=== PATIENT | female | born 1950 | race Caucasian/White ===

== ENCOUNTER 2016-12-11 18:21 | Emergency (ER) | payer OTHER ==
--- NOTE | ~2016-12-11 | CT101 ---
[facility] A Service of [facility] & [facility] RADIOLOGY TEXT RESULTS PATIENT: JOON RATLIFF LOCATION: [facility] : 50 UNIT #: [id number] AGE: [address]: Kt Pedraza MD SEX: F ORDER DR: [id number] [facility] [address] [place], [place] [address] [id number] E MR#: [id number] [facility] #: [id number] NAME: JOON RATLIFF : 1950 SEX: F STUDY DATE/TIME: 12/11/2016 17:19 UNIT: [facility] ROOM: STUDY DESCRIPTION: CT Maxillofacial Area Wo Cont Attending Physician: Kt Pedraza M.D. Ordering Physician: Abeba Mcneill M.D. Primary Care Physician: Rashida Burrell M.D. MEDICAL IMAGING REPORT This report is preliminary unless electronic signature is present EXAM CT facial bones HISTORY Fall, head injury today, swelling of the head, pain on left side x today. Orbit pain. TECHNIQUE CT facial bones performed. Bone and soft tissue windows reviewed. Sagittal and coronal reconstructions performed. This CT exam was performed with one or more of the following radiation dose reduction techniques: automatic exposure control, adjustment of mA and/or kV according to patient size, and iterative reconstruction. FINDINGS Please see today's dedicated CT of the head for full discussion of intracranial findings. The visualized brain on this examination shows no acute abnormality. The intraorbital soft tissues show no acute abnormality. There is a central and predominantly left paracentral forehead subcutaneous hematoma measuring approximately 8.1 cm in diameter x 1.7 cm in thickness x 4.2 cm in craniocaudal extent. It does extend into the left supraorbital soft tissues with soft tissue swelling extending into the left upper eyelid and possibly slightly into the lower eyelid as well. Abnormal soft tissue swelling extends into the nasal bridge region. No soft tissue defect, subcutaneous air or radiodense foreign bodies seen. The remainder of superficial facial soft tissues is unremarkable. The visualized nasopharyngeal, oropharyngeal, pharyngeal mucosal, retropharyngeal spaces, submandibular glands, parotid glands are unremarkable. There is streak artifact from incompletely visualized anterior fixation hardware involving at least the C4 and C5 levels. No upper cervical adenopathy. Mucous retention cyst right maxillary sinus. [facility]. [facility] A Service of [facility] RADIOLOGY TEXT RESULTS PATIENT: JOON RATLIFF LOCATION: [facility] : 50 UNIT #: [id number] AGE: [address]: Kt Pedraza MD SEX: F ORDER DR: No evidence of acute sinusitis. Visualized bones of calvaria intact. The nasal bones are intact as is the nasal septum. Ostiomeatal complexes are patent. The bony structures of orbits are intact. Zygomas, zygomatic arches, pterygoid plates, maxillary sinus griffin intact. The mandible is intact. There are degenerative changes in the temporomandibular joints bilaterally. Patient is edentulous. IMPRESSION 1. No fracture. 2. Large central and left paracentral forehead hematoma extending into the left periorbital soft tissues, more pronounced in the supraorbital soft tissues, and measuring approximately 8.1 cm in diameter x 1.7 cm in thickness x 4.2 cm in craniocaudal extent. No associated soft tissue defect, subcutaneous air or radiodense foreign body. Soft tissue swelling does extend to a lesser extent into the left lower eyelid and into the nasal bridge region. 3. No facial bone fracture is seen. 4. Degenerative changes in the temporomandibular joints. 5. Patient is edentulous. 6. Evidence of prior anterior cervical spine fixation involving at least the C4-C5 levels. Visualized hardware grossly intact. 7. Not mentioned above, note made of some scattered carotid arterial calcifications. 8. Mucus attention cyst right maxillary sinus. Dictated by... Kaiser Reyna M.D. THIS IS AN ELECTRONICALLY VERIFIED REPORT Kaiser Reyna M.D. at 12/12/2016 2:38 PM KSENIA/shae TD: 12/11/2016 22:40 JOB #: [id number] MEDICAL IMAGING REPORT Page 1 of 1 COPY
--- NOTE | ~2016-12-11 | CT71 ---
[facility] A Service [facility] RADIOLOGY TEXT RESULTS PATIENT: JOON RATLIFF LOCATION: [facility] : 50 UNIT #: [id number] AGE: [address]: Kt Pedraza MD SEX: F ORDER DR: [id number] [place] [id number] [facility] [place], [place] [address] [id number] E MR#: [id number] Acc #: [id number] NAME: JOON RATLIFF : 1950 SEX: F STUDY DATE/TIME: 12/11/2016 17:19 UNIT: [facility] ROOM: STUDY DESCRIPTION: CT Head Wo Contrast Attending Physician: Kt Pedraza M.D. Ordering Physician: Abeba Mcneill M.D. Primary Care Physician: Rashida Burrell M.D. MEDICAL IMAGING REPORT This report is preliminary unless electronic signature is present EXAM CT head without contrast INDICATIONS Fall today and injury. Left-sided headache and swelling. TECHNIQUE CT of the head was performed without contrast. This CT exam was performed with one or more of the following radiation dose reduction techniques: automatic exposure control, adjustment of mA and/or kV according to patient size, and iterative reconstruction. COMPARISON STUDIES None. FINDINGS There is a large left frontal scalp hematoma extending into the left periorbital region. No intracranial hemorrhage. There is no acute cortical-based infarction, focal mass lesion, or hydrocephalus. The included paranasal sinuses are unremarkable. There is no acute osseous abnormality. IMPRESSION There is a large left frontal scalp hematoma extending into the left periorbital region. There is no evidence of acute intracranial abnormality. Dictated by... Rosas Delgado M.D. [facility] A Service [facility] RADIOLOGY TEXT RESULTS PATIENT: JOON RATLIFF LOCATION: [facility] : 50 UNIT #: [id number] AGE: [address]: Kt Pedraza MD SEX: F ORDER DR: THIS IS AN ELECTRONICALLY VERIFIED REPORT Rosas Delgado M.D. at 12/12/2016 10:03 AM MICHAEL/shae TD: 12/11/2016 22:20 JOB #: [id number] MEDICAL IMAGING REPORT Page 1 of 1 COPY
--- NOTE | ~2016-12-11 | CR141 ---
[facility] A Service of [facility] & [facility] RADIOLOGY TEXT RESULTS PATIENT: JOON RATLIFF LOCATION: [facility] : 50 UNIT #: [id number] AGE: [address]: Kt Pedraza MD SEX: F ORDER DR: [id number] [facility] [address] [place], [place] [address] [id number] E MR#: [id number] Acc #: [id number] NAME: JOON RATLIFF : 1950 SEX: F STUDY DATE/TIME: 12/11/2016 18:08 UNIT: [facility] ROOM: STUDY DESCRIPTION: CR Hand Min 3 Views Lt Attending Physician: Kt Pedraza M.D. Ordering Physician: Twan Godoy D.O. Primary Care Physician: Rashida Burrell M.D. MEDICAL IMAGING REPORT This report is preliminary unless electronic signature is present EXAM Left hand 12/11/2016 INDICATIONS 65-year-old female who fell. Pain in the left hand, symptoms began today. TECHNIQUE 3 views left hand. No comparisons. FINDINGS The bones are osteoporotic. No acute fracture. Soft tissues within normal limits. There is mild degenerative change of the first carpometacarpal joint. There are mild degenerative changes of the DIP joints. No focal soft tissue swelling. IMPRESSION 1. Osteoporosis and degenerative change but no acute fracture. Dictated by... Erich Payne M.D. THIS IS AN ELECTRONICALLY VERIFIED REPORT Erich Payne M.D. at 12/12/2016 5:10 PM KADIE/sherrie TD: 12/11/2016 23:13 JOB #: [id number] MEDICAL IMAGING REPORT Page 1 of 1 COPY
--- NOTE | ~2016-12-11 | CR132 ---
[facility] A Service of [facility] RADIOLOGY TEXT RESULTS PATIENT: JOON RATLIFF LOCATION: [facility] : 50 UNIT #: [id number] AGE: [address]: Kt Pedraza MD SEX: F ORDER DR: [id number] [facility] [address] [place], [place] [address] [id number] E MR#: [id number] Acc #: [id number] NAME: JOON RATLIFF : 1950 SEX: F STUDY DATE/TIME: 12/11/2016 18:08 UNIT: [facility] ROOM: STUDY DESCRIPTION: CR Forearm 2 View Lt Attending Physician: Kt Pedraza M.D. Ordering Physician: Twan Godoy D.O. Primary Care Physician: Rashida Burrell M.D. MEDICAL IMAGING REPORT This report is preliminary unless electronic signature is present EXAM Left forearm series, 12/11/2016 HISTORY Trauma. Fall 12/11/2016. FINDINGS AP and lateral radiographs of the left forearm are presented. Diminished bony mineralization. No traumatic fracture or malalignment. The wrist and elbow joints appear normally located and aligned. No soft tissue defect, subcutaneous air or radiodense foreign body. Note made of mild to moderate degenerative changes at the basal joint of the thumb. Dictated by... Kaiser Reyna M.D. THIS IS AN ELECTRONICALLY VERIFIED REPORT Kaiser Reyna M.D. at 12/12/2016 2:37 PM KSENIA/laura TD: 12/11/2016 23:07 JOB #: [id number] MEDICAL IMAGING REPORT Page 1 of 1 COPY
--- NOTE | ~2016-12-11 | CR58 ---
[facility] A Service of [facility] RADIOLOGY TEXT RESULTS PATIENT: JOON RATLIFF LOCATION: [facility] : 50 UNIT #: [id number] AGE: [address]: Kt Pedraza MD SEX: F ORDER DR: [id number] [facility] [address] [place], [place] [address] [id number] E MR#: [id number] Acc #: [id number] NAME: JOON RATLIFF : 1950 SEX: F STUDY DATE/TIME: 12/11/2016 18:07 UNIT: [facility] ROOM: STUDY DESCRIPTION: CR Cervical Spine 2 or 3 Views Attending Physician: Kt Pedraza M.D. Ordering Physician: Twan Godoy D.O. Primary Care Physician: Rashida Burrell M.D. MEDICAL IMAGING REPORT This report is preliminary unless electronic signature is present EXAM Cervical series 12/11/2016 INDICATIONS Fell today, neck pain. TECHNIQUE Lateral, frontal, open-mouth odontoid, dedicated odontoid views of the cervical spine were performed. Correlation is made with MRI of the cervical spine 06/01/2010. FINDINGS The bones are osteoporotic. The dens and lateral masses are intact. Alignment is preserved. Cervicothoracic junction intact. The patient is status post anterior screw and plate fixation from C4-C6. Prosthetic disc devices are present at the operative levels. No acute fracture or malalignment. There is multilevel facet arthropathy throughout the cervical spine. Anterior soft tissues within normal limits. There is uncovertebral spurring in the buj-od-wikfw cervical levels. IMPRESSION 1. Osteoporosis without evidence of acute fracture or malalignment. 2. Anterior fusion of C4-C6. 3. Degenerative changes primarily related to facet arthropathy and uncovertebral spurring. Dictated by... Erich Payne M.D. THIS IS AN ELECTRONICALLY VERIFIED REPORT Erich Payne M.D. at 12/12/2016 5:10 PM JLY/[facility] A Service of [facility] RADIOLOGY TEXT RESULTS PATIENT: JOON RATLIFF LOCATION: [facility] : 50 UNIT #: [id number] AGE: [address]: Kt Pedraza MD SEX: F ORDER DR: TD: 12/11/2016 23:14 JOB #: [id number] MEDICAL IMAGING REPORT Page 1 of 1 COPY
--- NOTE | ~2016-12-11 | CR170 ---
[facility] A Service of [facility] RADIOLOGY TEXT RESULTS PATIENT: JOON RATLIFF LOCATION: [facility] : 50 UNIT #: [id number] AGE: [address]: Kt Pedraza MD SEX: F ORDER DR: [id number] [facility] [address] [place], [place] [address] [id number] E MR#: [id number] Acc #: [id number] NAME: JOON RATLIFF : 1950 SEX: F STUDY DATE/TIME: 12/11/2016 19:01 UNIT: [facility] ROOM: STUDY DESCRIPTION: CR Knee 2 Views Rt Attending Physician: Kt Pedraza M.D. Ordering Physician: Gary Galan M.D. Primary Care Physician: Rashida Burrell M.D. MEDICAL IMAGING REPORT This report is preliminary unless electronic signature is present EXAM Right knee series 12/11/2016 INDICATIONS 65-year-old female with pain and swelling, bruising. Tripped over a curb and hit the face today. TECHNIQUE Additional views of the right knee prior study at 1809 hours, same date. FINDINGS The additional views demonstrate no evidence of distinct fracture. Specifically, the medial aspect of the tibial plateau appears intact. There is only some minimal spurring but no acute fracture. IMPRESSION 1. The additional views demonstrate no distinct evidence of fracture involving the medial tibial plateau. Dictated by... Erich Payne M.D. THIS IS AN ELECTRONICALLY VERIFIED REPORT Erich Payne M.D. at 12/12/2016 5:11 PM KADIE/sherrie TD: 12/11/2016 23:36 JOB #: [id number] MEDICAL IMAGING REPORT Page 1 of 1 COPY
--- NOTE | ~2016-12-11 | CR173 ---
[facility] A Service of [facility] & [facility] RADIOLOGY TEXT RESULTS PATIENT: JOON RATLIFF LOCATION: [facility] : 50 UNIT #: [id number] AGE: [address]: Kt Pedraza MD SEX: F ORDER DR: [id number] [facility] [address] [place], [place] [address] [id number] E MR#: [id number] Acc #: [id number] NAME: JOON RATLIFF : 1950 SEX: F STUDY DATE/TIME: 12/11/2016 18:09 UNIT: [facility] ROOM: STUDY DESCRIPTION: CR Knee 3 Views Rt Attending Physician: Kt Pedraza M.D. Ordering Physician: Twan Godoy D.O. Primary Care Physician: Rashida Burrell M.D. MEDICAL IMAGING REPORT This report is preliminary unless electronic signature is present EXAM Right knee series, 12/11/2016 HISTORY Fall 12/11/2016. Pain. Trauma. FINDINGS AP, lateral and sunrise views of the right knee are presented. Generally diminished bony mineralization. There is an area of poorly defined cortex and relative lucency along the medial aspect of the medial tibial plateau without distinct fracture seen. I favor that this is a projectional artifact. Correlate with mechanism of injury and location of patient's pain. This might be further evaluated with repeat AP and/or oblique views of the knee. As noted, no definite fracture is seen. There is moderate narrowing of all three joint space compartments. No joint effusion. No acute appearing soft tissue abnormality. Dictated by... Kaiser Reyna M.D. THIS IS AN ELECTRONICALLY VERIFIED REPORT Kaiser Reyna M.D. at 12/12/2016 2:37 PM KSENIA/sherrie TD: 12/11/2016 23:06 JOB #: [id number] MEDICAL IMAGING REPORT Page 1 of 1 COPY
[~2016-12-11 18:21] MED LIST: COLACE PO; CYANOCOBAL1000 MCG/M INJ; EXCEDRIN MIGRAI1 TA1 PO; FERROUS SULFATE PO
== END 2016-12-11 20:21 | disposition home or self-care (01) ==
LOC: CED 18:21
DX: S00.93XA Contusion of unspecified part of head, initial encounter (principal); Z88.2 Allergy status to sulfonamides; Z88.5 Allergy status to narcotic agent; Z23 Encounter for immunization; W10.9XXA Fall (on) (from) unspecified stairs and steps, initial encounter; Y92.410 Unspecified street and highway as the place of occurrence of the external cause
CPT/HCPCS: 70450; 70486; 72040; 73090; 73130; 73560; 73562; 90471; 90715; 99284